=== PATIENT | male | born 1995 ===

== ENCOUNTER → 2018-03-08 | Outpatient (CLI) | payer OTHER ==
--- NOTE | 2018-03-08 13:13 | Diagnostic Imaging Report ---
Indication: Ankle pain after twisting injury. Comparison: None available. Technique: 3 nonweightbearing views of right ankle were obtained. Findings: There is no acute fracture or traumatic malalignment. No osteochondral lesion of the talar dome. Moderate soft tissue swelling about the ankle. No mineralized intra-articular bodies. Impression: 1. No acute fracture or traumatic malalignment. Findings were called to nurse practitioner Angelique at 1:05 PM on 03/08/2018. Dictated by: Dictated on workstation # [id number]
== END ==
LOC: RAD 12:44
PROVIDERS: ATTEND Nurse Practitioner Family
DX: M25.571 Pain in right ankle and joints of right foot (principal); X50.1XXA Overexertion from prolonged static or awkward postures, initial encounter
CPT/HCPCS: 73610